=== PATIENT | male | born 1985 | race Hispanic/Latino ===

== ENCOUNTER 2016-12-25 09:27 | Emergency (ER) | payer SELFPAY ==
[2016-12-25 09:37] VITALS: TEMP 96
[2016-12-25] MEDS ORDERED: KETOROLAC TROMETHAMINE INJ 60 MG/2 ML VIAL IM ONE (09:39)
[2016-12-25] MEDS ORDERED: CYCLOBENZAPRINE HCL 10 MG TAB PO ONE (09:39)
--- NOTE | 2016-12-25 09:43 | ED.PDOC ---
History of Present Illness - General Chief Complaint: Neck Injury/Pain Stated Complaint: neck and shoulder pain Time Seen by Provider: 12/25/16 09:34 Source: patient, RN notes reviewed, Vital Signs reviewed Exam Limitations: no limitations - History of Present Illness Initial Comments: Patient c/o muscular pain of L neck, shoulder and upper back. Pain is worse with ROM. Waking him up at night when he moves around. He has not taken anything for this, not even OTC Tylenol or Ibuprofen. Occ tingling in fingers of L hand but no numbness or weakness. Timing/Duration: getting worse - over 2 weeks Severity: moderate Improving Factors: rest Worsening Factors: movement Associated Symptoms: denies symptoms Allergies/Adverse Reactions: Allergies NO KNOWN ALLERGY Allergy (Unverified 02/03/13 06:49) Home Medications: Ambulatory Orders Cyclobenzaprine HCl 5 mg PO BEDTIME #12 tab 12/25/16 Review of Systems - Review of Systems Constitutional: States: no symptoms reported Respiratory: States: no symptoms reported Cardiology: States: no symptoms reported Musculoskeletal: States: back pain - L upper back, muscle pain, muscle stiffness - L upper back, neck and shoulder, neck pain - L side Skin: States: no symptoms reported Neurological: States: paresthesia, tingling. Denies: numbness, weakness Past Medical History (General) - Patient Medical History Hx Seizures: No Hx Stroke: No Hx Dementia: No Hx Asthma: No Hx of COPD: No Hx Cardiac Disorders: No Hx Congestive Heart Failure: No Hx Pacemaker: No Hx Hypertension: No Hx Thyroid Disease: No Hx Diabetes: No Hx Gastroesophageal Reflux: No Hx Renal Disease: No Hx Cancer: No Hx of HIV: No Hx Hepatitis C: No Hx MRSA: No Surgical History: no surgical history - Vaccination History Hx Tetanus, Diphtheria Vaccination: Yes Hx Influenza Vaccination: Yes Hx Pneumococcal Vaccination: No - Social History Hx Tobacco Use: Yes Hx Chewing Tobacco Use: No Hx Alcohol Use: Yes Hx Substance Use: No Hx Substance Use Treatment: No Hx Depression: No Hx Physical Abuse: No Hx Emotional Abuse: No Hx Suspected Abuse: No - Female History Patient : No Family Medical History - Family History Father Family History: Unknown Living Status: Unknown Hx Family Asthma: No Hx Family Congestive Heart Failure: No Physical Exam - Physical Exam General Appearance: Alert, Comfortable, No apparent distress, Well Developed, Well Groomed, Well Hydrated, Well Nourished Eye Exam: bilateral normal Ears, Nose, Throat: hearing grossly normal Neck: non-tender, full range of motion, supple, normal inspection Respiratory: lungs clear, normal breath sounds, no respiratory distress, no accessory muscle use Cardiovascular/Chest: regular rate, rhythm, no gallop, no murmur Back Exam: normal inspection, no vertebral tenderness Extremity: normal range of motion - of L shoulder, non-tender, normal inspection Neurologic: no motor/sensory deficits, alert, normal mood/affect, oriented x 3 Skin Exam: normal color, warm/dry, other - multiple tattoos Comments: Vital Signs - 24 hr 12/25/16 09:34 Temperature 96 F L Pulse Rate [ 63 Right Brachial] Respiratory 16 Rate Blood Pressure 120/63 [Right Arm] O2 Sat by Pulse 99 Oximetry Progress - Progress Progress: 12/25/16 10:15 Patient reports he is feeling better. Recommended if needed get outpatient MRI - EKG/XRAY/CT XRAY: c-spine - No acute changes per radiologist Departure - Departure Clinical Impression: Muscle spasm of left shoulder area Strain, cervical Qualifiers: Encounter type: initial encounter Qualified Code(s): S16.1XXA - Strain of muscle, fascia and tendon at neck level, initial encounter Time of Disposition: 10:17 Disposition: Discharge to Home or Self Care Condition: Good Departure Forms: ED Discharge - Pt. Copy, Patient Portal Self Enrollment Instructions: DI for Cervical Muscle Strain Diet: resume usual diet Activity: increase activity as tolerated Prescriptions: Cyclobenzaprine HCl 5 mg PO BEDTIME #12 tab Home Medications: Ambulatory Orders Cyclobenzaprine HCl 5 mg PO BEDTIME #12 tab 12/25/16 Additional Instructions: Follow up with PCP for further evaluation and management.
--- NOTE | 2016-12-25 10:04 | RAD ---
EXAM DESCRIPTION: XR CERVICAL SPINE 2 - 3 VIEWS CLINICAL HISTORY: L sided pain and muscle spasm COMPARISON: None FINDINGS: AP, lateral , odontoid and open-mouth view of the cervical spine were submitted. The prevertebral soft tissues are within normal limits. There is mild osteophytic formation noted within the anterior aspect of the C6 vertebral body. There is no acute fracture or subluxation. The cervicothoracic junction is identified and well aligned. The lateral masses of C1 and the odontoid are well aligned IMPRESSION: No acute abnormalities. Electronically signed by: Kevin Zhu MD 12/25/2016 10:03 AM CDT
[2016-12-25 10:35] VITALS: BP 115/76; O2SAT 100
== END 2016-12-25 10:35 | disposition home or self-care (01) ==
LOC: ER 09:27
DX: S16.1XXA Strain of muscle, fascia and tendon at neck level, initial encounter (principal); M62.838 Other muscle spasm; Z87.891 Personal history of nicotine dependence; X58.XXXA Exposure to other specified factors, initial encounter
CPT/HCPCS: 72040; J1885